=== PATIENT | male | born 1940 | race Caucasian/White ===

== ENCOUNTER 2020-08-01 22:35 | Inpatient (IN) ==
[2020-08-02] MEDS ORDERED: Naloxone 0.4 MG/ML INJ IVP PRN (02:16)
[2020-08-02] MEDS ORDERED: Ondansetron 4 MG/2 ML VIAL IVP PRN (02:16)
[2020-08-02] MEDS ORDERED: 0.9 % Sodium Chloride 1,000 ML IVC SCH ×2 (02:30→20:30)
[2020-08-02] MEDS ORDERED: Dextrose Gel 15 GM/37.5 ML TUBE PO PRN ×2 (02:47)
[2020-08-02] MEDS ORDERED: D5% in Water 1,000 ML IVC PRN (02:47)
[2020-08-02] MEDS ORDERED: *HR* Dextrose 50 % in Water (Vial) 50 ML VIAL IVP PRN (02:47)
[2020-08-02] MEDS: Insulin LISPRO 300 UNITS/3 ML VIAL SQ SCH ×3 (06:17→20:12)
[2020-08-02 10:47] LABS: White Blood Count 9.9 K/mcL (4.3-11.1)
[2020-08-02 10:48] LABS: Basophils % 0.3 %; Eosinophils # 0.4 K/mcL (0.0-0.6); Eosinophils % 3.6 %; Hematocrit 28.8 % (37.5-50.1); Hemoglobin 9.1 g/dL (12.9-16.9); Immature Granulocytes % 0.4 % (0-4); Lymphocytes # 1.4 K/mcL (0.6-4.6); Mean Corpuscular HGB Conc 31.6 g/dL (31.6-35.5); Mean Corpuscular Hemoglobin 29.4 pg (28.0-33.3); Mean Corpuscular Volume 92.9 fL (83.0-100.0); Mean Platelet Volume 11.5 fL (9.4-12.4); Monocytes # 0.9 K/mcL (0.0-1.3); Monocytes % 9.5 %; Neutrophils # 7.2 K/mcL (1.6-8.9); Platelet Count 113 K/mcL (140-400); Red Cell Distribution Width 14.4 % (11.5-14.5); Segmented Neutrophils % 72.2 %
[2020-08-02 11:01] LABS: INR 1.7; Prothrombin Time 19.1 Seconds (9.4-12.1)
[2020-08-02 11:04] LABS: Activated Partial Thrombo Time 61.7 Seconds (26.0-36.0)
[2020-08-02 11:09] LABS: Alanine Aminotransferase 6 Units/L (7-52); Albumin 3.6 g/dL (3.5-5.7); Albumin/Globulin Ratio 1.5 (1.1-2.2); Alkaline Phosphatase 75 Units/L (34-104); Aspartate Amino Transferase 13 Units/L (13-39); BUN/Creatinine Ratio 21 (6-26); Bilirubin,Total 0.9 mg/dL (0.3-1.0); Blood Urea Nitrogen 33 mg/dL (8-23); Calcium 9.1 mg/dL (8.6-10.3); Carbon Dioxide 26 mEq/L (23-29); Chloride 105 mEq/L (98-107); Globulin 2.4 g/dL (2.4-3.5); Glucose 114 mg/dL (70-105); Osmolality,Calculated 294 (280-300); Sodium 138 mEq/L (136-145); Troponin I < 0.03 ng/mL (< 0.04); eGFR For African Americans 51 (> 60); eGFR For Non-African Americans 42 (> 60)
[2020-08-02] MEDS ORDERED: Perflutren Lipid Microsphere 1.3 ML in 0.9 % Sodium Chloride 8.7 ML IVP PRN (14:23)
[2020-08-02] MEDS ORDERED: *HR* LORazepam 0.5 MG TABLET PO PRN (20:28)
[2020-08-02] MEDS ORDERED: Albuterol 2.5 MG/3 ML NEBULIZER IH PRN (20:28)
[2020-08-02 20:55] LABS: Magnesium 1.7 mg/dL (1.6-2.6)
[2020-08-02] MEDS: Melatonin 3 MG TABLET PO SCH (21:27)
[2020-08-02] MEDS: QUEtiapine Fumarate 100 MG TABLET PO SCH (21:27)
[2020-08-03 03:06] LABS: INR 1.6; Prothrombin Time 17.7 Seconds (9.4-12.1)
[2020-08-03 03:08] LABS: Basophils % 0.3 %; Eosinophils # 0.4 K/mcL (0.0-0.6); Eosinophils % 3.7 %; Hemoglobin 8.2 g/dL (12.9-16.9); Immature Granulocytes % 0.6 % (0-4); Lymphocytes # 1.3 K/mcL (0.6-4.6); Lymphocytes % 13.5 %; Mean Corpuscular HGB Conc 31.5 g/dL (31.6-35.5); Mean Corpuscular Hemoglobin 29.4 pg (28.0-33.3); Mean Corpuscular Volume 93.2 fL (83.0-100.0); Mean Platelet Volume 12.2 fL (9.4-12.4); Monocytes % 10.3 %; Neutrophils # 6.7 K/mcL (1.6-8.9); Platelet Count 108 K/mcL (140-400); Red Blood Count 2.79 M/mcL (4.19-5.50); Red Cell Distribution Width 14.5 % (11.5-14.5); Segmented Neutrophils % 71.6 %; White Blood Count 9.4 K/mcL (4.3-11.1)
[2020-08-03 03:22] LABS: BUN/Creatinine Ratio 21 (6-26); Blood Urea Nitrogen 25 mg/dL (8-23); Calcium 8.9 mg/dL (8.6-10.3); Carbon Dioxide 25 mEq/L (23-29); Chloride 106 mEq/L (98-107); Glucose 120 mg/dL (70-105); Osmolality,Calculated 290 (280-300); Potassium 3.9 mEq/L (3.5-5.1); Sodium 137 mEq/L (136-145); eGFR For African Americans > 60 (> 60); eGFR For Non-African Americans 58 (> 60)
[2020-08-03] MEDS: Insulin LISPRO 300 UNITS/3 ML VIAL SQ SCH ×4 (03:42→18:56)
[2020-08-03] MEDS ORDERED: TOTAL JOINT MIXTURE (100ML) INTRAART ONE (07:45)
[2020-08-03] MEDS ORDERED: Povidone-Iodine 45 ML, Sodium Chloride IRRigation 1,000 ML IR ONE (07:45)
[2020-08-03 08:28] LABS: INR 1.5; Prothrombin Time 16.7 Seconds (9.4-12.1)
[2020-08-03] MEDS: Fluticasone Propionate Nasal 50 MCG/SPRAY BOTTLE NS SCH (09:08)
[2020-08-03] MEDS ORDERED: 0.9 % Sodium Chloride 250 ML ONE (10:56)
[2020-08-03] MEDS ORDERED: *HR* FentaNYL (PF) 100 MCG/2 ML VIAL ONE (11:49)
[2020-08-03] MEDS ORDERED: Tranexamic Acid 1,000 MG/10 ML VIAL ONE ×2 (11:52→11:58)
[2020-08-03] MEDS ORDERED: Lidocaine -MPF 4% 5 ML AMPUL ONE (11:54)
[2020-08-03] MEDS ORDERED: Dexamethasone 4 MG/ML VIAL ONE (11:54)
[2020-08-03] MEDS ORDERED: *HR* Succinylcholine 200 MG/10 ML VIAL IVP ONE (11:54)
[2020-08-03] MEDS ORDERED: Ondansetron 4 MG/2 ML VIAL ONE (11:54)
[2020-08-03] MEDS ORDERED: Lidocaine -MPF 2% 2 ML VIAL ONE (11:54)
[2020-08-03] MEDS ORDERED: *HR* PHENYLEPHRINE 1,000 MCG/10 ML SYRINGE IVP ONE (11:56)
[2020-08-03] MEDS ORDERED: Famotidine 20 MG/2 ML VIAL ONE (12:00)
[2020-08-03] MEDS ORDERED: Acetaminophen IV 1,000 MG/100 ML INFUS..BTL ONE (12:00)
[2020-08-03] MEDS ORDERED: Vancomycin 1,000 MG VIAL ONE (12:24)
[2020-08-03] MEDS ORDERED: *HR* Vasopressin 20 UNIT/ML VIAL ONE (12:44)
[2020-08-03] MEDS ORDERED: Ondansetron 4 MG/2 ML VIAL IVP PRN (14:18)
[2020-08-03] MEDS ORDERED: *HR* HYDROmorphone PF 0.5 MG/0.5 ML SYRINGE IVP PRN (14:18)
[2020-08-03] MEDS ORDERED: *HR* HYDROMORPHONE 2 MG/ML VIAL ONE (15:07)
[2020-08-03] MEDS ORDERED: Sennosides 8.6 MG TABLET PO PRN (16:06)
[2020-08-03] MEDS ORDERED: MOM Conc 10 ML UD.LIQ PO PRN (16:06)
[2020-08-03] MEDS ORDERED: Ringers Solution, Lactated 1,000 ML IVC SCH (16:15)
[2020-08-03] MEDS: Ascorbic Acid 500 MG TABLET PO SCH (19:27)
[2020-08-03] MEDS: CeFAZolin 2 GM/120 ML BAG IVPB SCH (20:28)
[2020-08-03] MEDS: Melatonin 3 MG TABLET PO SCH (22:05)
[2020-08-03] MEDS: QUEtiapine Fumarate 100 MG TABLET PO SCH (22:05)
[2020-08-04 00:51] LABS: Hematocrit 27.5 % (37.5-50.1); Hemoglobin 8.8 g/dL (12.9-16.9); Mean Corpuscular Hemoglobin 29.8 pg (28.0-33.3); Mean Corpuscular Volume 93.2 fL (83.0-100.0); Mean Platelet Volume 12.3 fL (9.4-12.4); Platelet Count 105 K/mcL (140-400); Red Blood Count 2.95 M/mcL (4.19-5.50); Red Cell Distribution Width 14.6 % (11.5-14.5); White Blood Count 9.4 K/mcL (4.3-11.1)
[2020-08-04 01:10] LABS: BUN/Creatinine Ratio 17 (6-26); Blood Urea Nitrogen 19 mg/dL (8-23); Calcium 8.9 mg/dL (8.6-10.3); Carbon Dioxide 25 mEq/L (23-29); Chloride 108 mEq/L (98-107); Glucose 147 mg/dL (70-105); Magnesium 1.8 mg/dL (1.6-2.6); Osmolality,Calculated 293 (280-300); Potassium 4.7 mEq/L (3.5-5.1); Sodium 139 mEq/L (136-145); eGFR For African Americans > 60 (> 60); eGFR For Non-African Americans > 60 (> 60)
[2020-08-04] MEDS: Insulin LISPRO 300 UNITS/3 ML VIAL SQ SCH ×5 (01:19→22:13)
[2020-08-04] MEDS: CeFAZolin 2 GM/120 ML BAG IVPB SCH (03:16)
[2020-08-04] MEDS: Ascorbic Acid 500 MG TABLET PO SCH ×2 (08:19→15:16)
[2020-08-04] MEDS: Aspirin Enteric Coated 81 MG Tablet PO SCH (08:19)
[2020-08-04] MEDS: Multivit/Ca/Min/Fe/FA 1 TAB TABLET PO SCH (08:20)
[2020-08-04] MEDS: QUEtiapine Fumarate 25 MG TABLET PO SCH (08:21)
[2020-08-04] MEDS: Fluticasone Propionate Nasal 50 MCG/SPRAY BOTTLE NS SCH (08:22)
[2020-08-04] MEDS: QUEtiapine Fumarate 100 MG TABLET PO SCH (22:20)
[2020-08-04] MEDS: *HR* Dabigatran 75 MG CAPSULE PO SCH (22:20)
[2020-08-04] MEDS: Melatonin 3 MG TABLET PO SCH (22:21)
[2020-08-05 02:57] LABS: Basophils % 0.2 %; Eosinophils # 0.4 K/mcL (0.0-0.6); Eosinophils % 4.6 %; Hematocrit 24.6 % (37.5-50.1); Hemoglobin 7.9 g/dL (12.9-16.9); Immature Granulocytes % 0.8 % (0-4); Lymphocytes # 1.4 K/mcL (0.6-4.6); Lymphocytes % 15.4 %; Mean Corpuscular HGB Conc 32.1 g/dL (31.6-35.5); Mean Corpuscular Hemoglobin 30.2 pg (28.0-33.3); Mean Corpuscular Volume 93.9 fL (83.0-100.0); Mean Platelet Volume 12.2 fL (9.4-12.4); Monocytes % 10.9 %; Neutrophils # 6.2 K/mcL (1.6-8.9); Platelet Count 109 K/mcL (140-400); Red Blood Count 2.62 M/mcL (4.19-5.50); Red Cell Distribution Width 14.6 % (11.5-14.5); Segmented Neutrophils % 68.1 %; White Blood Count 9.2 K/mcL (4.3-11.1)
[2020-08-05 03:06] LABS: BUN/Creatinine Ratio 17 (6-26); Blood Urea Nitrogen 14 mg/dL (8-23); Calcium 8.5 mg/dL (8.6-10.3); Carbon Dioxide 25 mEq/L (23-29); Chloride 107 mEq/L (98-107); Glucose 112 mg/dL (70-105); Osmolality,Calculated 283 (280-300); Potassium 3.6 mEq/L (3.5-5.1); Sodium 136 mEq/L (136-145); eGFR For African Americans > 60 (> 60); eGFR For Non-African Americans > 60 (> 60)
[2020-08-05] MEDS: *HR* Dabigatran 75 MG CAPSULE PO SCH ×2 (09:17→20:11)
[2020-08-05] MEDS: QUEtiapine Fumarate 25 MG TABLET PO SCH (09:18)
[2020-08-05] MEDS: Aspirin Enteric Coated 81 MG Tablet PO SCH (09:18)
[2020-08-05] MEDS: Multivit/Ca/Min/Fe/FA 1 TAB TABLET PO SCH (09:19)
[2020-08-05] MEDS: Ascorbic Acid 500 MG TABLET PO SCH ×2 (09:19→16:18)
[2020-08-05] MEDS: Insulin LISPRO 300 UNITS/3 ML VIAL SQ SCH ×4 (09:25→21:00)
[2020-08-05] MEDS: Fluticasone Propionate Nasal 50 MCG/SPRAY BOTTLE NS SCH (09:26)
[2020-08-05] MEDS: Melatonin 3 MG TABLET PO SCH (20:11)
[2020-08-05] MEDS: QUEtiapine Fumarate 100 MG TABLET PO SCH (20:11)
[2020-08-06 04:43] LABS: Hematocrit 27.2 % (37.5-50.1); Hemoglobin 8.6 g/dL (12.9-16.9); Mean Corpuscular HGB Conc 31.6 g/dL (31.6-35.5); Mean Corpuscular Hemoglobin 29.9 pg (28.0-33.3); Mean Corpuscular Volume 94.4 fL (83.0-100.0); Mean Platelet Volume 11.6 fL (9.4-12.4); Platelet Count 118 K/mcL (140-400); Red Blood Count 2.88 M/mcL (4.19-5.50); Red Cell Distribution Width 14.5 % (11.5-14.5); White Blood Count 7.8 K/mcL (4.3-11.1)
[2020-08-06 04:52] LABS: BUN/Creatinine Ratio 14 (6-26); Blood Urea Nitrogen 10 mg/dL (8-23); Calcium 8.6 mg/dL (8.6-10.3); Carbon Dioxide 26 mEq/L (23-29); Chloride 104 mEq/L (98-107); Glucose 117 mg/dL (70-105); Osmolality,Calculated 286 (280-300); Potassium 3.8 mEq/L (3.5-5.1); Sodium 138 mEq/L (136-145); eGFR For African Americans > 60 (> 60); eGFR For Non-African Americans > 60 (> 60)
[2020-08-06] MEDS: QUEtiapine Fumarate 25 MG TABLET PO SCH (08:20)
[2020-08-06] MEDS: Aspirin Enteric Coated 81 MG Tablet PO SCH (08:21)
[2020-08-06] MEDS: *HR* Dabigatran 75 MG CAPSULE PO SCH (08:21)
[2020-08-06] MEDS: Ascorbic Acid 500 MG TABLET PO SCH ×2 (08:21→16:58)
[2020-08-06] MEDS: Multivit/Ca/Min/Fe/FA 1 TAB TABLET PO SCH (08:21)
[2020-08-06] MEDS: Insulin LISPRO 300 UNITS/3 ML VIAL SQ SCH ×4 (08:22→21:45)
[2020-08-06] MEDS: Fluticasone Propionate Nasal 50 MCG/SPRAY BOTTLE NS SCH (08:27)
[2020-08-06] MEDS ORDERED: Acetaminophen 325 MG TABLET PO PRN (10:12)
[2020-08-06] MEDS: QUEtiapine Fumarate 100 MG TABLET PO SCH (21:45)
[2020-08-06] MEDS: Melatonin 3 MG TABLET PO SCH (21:45)
[2020-08-06] MEDS: *HR* Dabigatran 150 MG CAPSULE PO SCH (21:45)
[2020-08-07 02:19] LABS: Hematocrit 29.3 % (37.5-50.1); Hemoglobin 9.1 g/dL (12.9-16.9); Mean Corpuscular HGB Conc 31.1 g/dL (31.6-35.5); Mean Corpuscular Hemoglobin 30.8 pg (28.0-33.3); Mean Corpuscular Volume 99.3 fL (83.0-100.0); Mean Platelet Volume 12.4 fL (9.4-12.4); Red Blood Count 2.95 M/mcL (4.19-5.50); Red Cell Distribution Width 14.5 % (11.5-14.5); White Blood Count 8.1 K/mcL (4.3-11.1)
[2020-08-07 02:43] LABS: Platelet Count 92 K/mcL (140-400)
[2020-08-07] MEDS: Insulin LISPRO 300 UNITS/3 ML VIAL SQ SCH ×4 (08:19→21:07)
[2020-08-07] MEDS: QUEtiapine Fumarate 25 MG TABLET PO SCH (08:21)
[2020-08-07] MEDS: Ascorbic Acid 500 MG TABLET PO SCH ×2 (08:21→14:58)
[2020-08-07] MEDS: Aspirin Enteric Coated 81 MG Tablet PO SCH (08:21)
[2020-08-07] MEDS: *HR* Dabigatran 150 MG CAPSULE PO SCH ×2 (08:21→21:06)
[2020-08-07] MEDS: Fluticasone Propionate Nasal 50 MCG/SPRAY BOTTLE NS SCH (08:22)
[2020-08-07] MEDS: Multivit/Ca/Min/Fe/FA 1 TAB TABLET PO SCH (08:22)
[2020-08-07] MEDS: QUEtiapine Fumarate 100 MG TABLET PO SCH (21:06)
[2020-08-07] MEDS: Melatonin 3 MG TABLET PO SCH (21:07)
[2020-08-08] MEDS: *HR* Dabigatran 150 MG CAPSULE PO SCH (08:30)
[2020-08-08] MEDS: Ascorbic Acid 500 MG TABLET PO SCH ×2 (08:31→15:52)
[2020-08-08] MEDS: Aspirin Enteric Coated 81 MG Tablet PO SCH (08:31)
[2020-08-08] MEDS: Multivit/Ca/Min/Fe/FA 1 TAB TABLET PO SCH (08:31)
[2020-08-08] MEDS: QUEtiapine Fumarate 25 MG TABLET PO SCH (08:31)
[2020-08-08] MEDS: Fluticasone Propionate Nasal 50 MCG/SPRAY BOTTLE NS SCH (08:32)
[2020-08-08] MEDS: Insulin LISPRO 300 UNITS/3 ML VIAL SQ SCH ×2 (10:17→12:35)
[2020-08-08 20:34] VITALS: BP 150/91
== END 2020-08-08 22:00 | DRG 522 ==
LOC: 3NENU → SUATTDRO 08-02 01:52
PROVIDERS: ADMIT Student in an Organized Health Care Education/Training Program; ATTEND Internal Medicine

== ENCOUNTER 2020-09-15 11:22 | Inpatient (IN) ==
[2020-09-15 13:25] LABS: BUN/Creatinine Ratio 11 (6-26); Blood Urea Nitrogen 9 mg/dL (8-23); Calcium 9.9 mg/dL (8.6-10.3); Carbon Dioxide 31 mEq/L (23-29); Chloride 98 mEq/L (98-107); Glucose 117 mg/dL (70-105); Osmolality,Calculated 284 (280-300); Potassium 3.6 mEq/L (3.5-5.1); Sodium 137 mEq/L (136-145); eGFR For African Americans > 60 (> 60); eGFR For Non-African Americans > 60 (> 60)
[2020-09-15] MEDS ORDERED: Piperacillin/Tazobactam 3.375 GM in Water for inj. (sterile) 20 ML IVP ONE (16:08)
[2020-09-15 16:12] LABS: Basophils % 0.4 %; Eosinophils # 0.1 K/mcL (0.0-0.6); Eosinophils % 1.1 %; Hematocrit 39.2 % (37.5-50.1); Hemoglobin 12.1 g/dL (12.9-16.9); Immature Granulocytes % 0.4 % (0-4); Lymphocytes # 1.8 K/mcL (0.6-4.6); Lymphocytes % 21.1 %; Mean Corpuscular HGB Conc 30.9 g/dL (31.6-35.5); Mean Corpuscular Hemoglobin 27.1 pg (28.0-33.3); Mean Corpuscular Volume 87.9 fL (83.0-100.0); Monocytes # 0.9 K/mcL (0.0-1.3); Monocytes % 10.4 %; Neutrophils # 5.6 K/mcL (1.6-8.9); Platelet Count 177 K/mcL (140-400); Red Blood Count 4.46 M/mcL (4.19-5.50); Red Cell Distribution Width 14.9 % (11.5-14.5); Segmented Neutrophils % 66.6 %; White Blood Count 8.4 K/mcL (4.3-11.1)
[2020-09-15 16:38] LABS: C-Reactive Protein 10 mg/L (Less than 10)
[2020-09-15] MEDS ORDERED: Ketorolac 15 MG/ML VIAL IVP PRN (18:35)
[2020-09-15] MEDS ORDERED: Ondansetron ODT 4 MG TAB.RAPDIS SL PRN (18:35)
[2020-09-15] MEDS ORDERED: Naloxone 0.4 MG/ML INJ IVP PRN (18:35)
[2020-09-15] MEDS: QUEtiapine Fumarate 100 MG TABLET PO SCH (20:56)
[2020-09-15] MEDS: *HR* Heparin 5,000 UNIT/ML VIAL SQ SCH (20:56)
[2020-09-15] MEDS ORDERED: Albuterol 2.5 MG/3 ML NEBULIZER IH PRN (22:00)
[2020-09-16] MEDS: Piperacillin/Tazobactam 3.375 GM in 0.9 % Sodium Chloride Mini Bag 100 ML IVPB SCH ×4 (00:24→23:38)
[2020-09-16] MEDS: Vancomycin 1,500 MG/265 ML IV.SOLN IVPB SCH ×2 (04:25→15:57)
[2020-09-16 05:16] LABS: Basophils % 0.7 %; Eosinophils # 0.3 K/mcL (0.0-0.6); Eosinophils % 4.3 %; Hematocrit 39.1 % (37.5-50.1); Immature Granulocytes % 0.7 % (0-4); Lymphocytes # 1.7 K/mcL (0.6-4.6); Lymphocytes % 28.9 %; Mean Corpuscular HGB Conc 30.7 g/dL (31.6-35.5); Mean Corpuscular Volume 87.9 fL (83.0-100.0); Mean Platelet Volume 10.2 fL (9.4-12.4); Monocytes # 0.8 K/mcL (0.0-1.3); Monocytes % 13.1 %; Platelet Count 134 K/mcL (140-400); Red Blood Count 4.45 M/mcL (4.19-5.50); Red Cell Distribution Width 14.8 % (11.5-14.5); Segmented Neutrophils % 52.3 %; White Blood Count 5.8 K/mcL (4.3-11.1)
[2020-09-16 05:40] LABS: BUN/Creatinine Ratio 9 (6-26); Blood Urea Nitrogen 7 mg/dL (8-23); Calcium 9.7 mg/dL (8.6-10.3); Carbon Dioxide 29 mEq/L (23-29); Chloride 102 mEq/L (98-107); Chol/HDL Ratio 5.4 (0-4.9); Cholesterol 135 mg/dL (< 200); Glucose 103 mg/dL (70-105); HDL Cholesterol 25 mg/dL (40-59); LDL Cholesterol,Calculated 89 mg/dL (< 100); Osmolality,Calculated 286 (280-300); Potassium 3.3 mEq/L (3.5-5.1); Sodium 139 mEq/L (136-145); Triglycerides 107 mg/dL (< 150); eGFR For African Americans > 60 (> 60); eGFR For Non-African Americans > 60 (> 60)
[2020-09-16] MEDS: *HR* Heparin 5,000 UNIT/ML VIAL SQ SCH ×3 (06:11→22:37)
[2020-09-16] MEDS: QUEtiapine Fumarate 25 MG TABLET PO SCH (09:01)
[2020-09-16 09:09] LABS: Estimated Average Glucose 117 mg/dl
[2020-09-16 12:10] LABS: Adenovirus Not Detected (Not Detect); Bordetella Pertussis Not Detected (Not Detect); Chlamydophila pneumoniae Not Detected (Not Detect); Coronavirus 229E Not Detected (Not Detect); Coronavirus HKU1 Not Detected (Not Detect); Coronavirus NL63 Not Detected (Not Detect); Coronavirus OC43 Not Detected (Not Detect); Human Metapneumovirus Not Detected (Not Detect); Human Rhinovirus/Enterovirus Not Detected (Not Detect); Influenza A Subtype 2009 H1 Not Detected (Not Detect); Influenza B Not Detected (Not Detect); Mycoplasma pneumoniae Not Detected (Not Detect); Parainfluenza Virus 1 Not Detected (Not Detect); Parainfluenza Virus 2 Not Detected (Not Detect); Parainfluenza Virus 3 Not Detected (Not Detect); Parainfluenza Virus 4 Not Detected (Not Detect); Respiratory Syncytial Virus Not Detected (Not Detect); SARS-CoV-2 Not Detected (Not Detect)
[2020-09-16] MEDS: QUEtiapine Fumarate 100 MG TABLET PO SCH (20:06)
[2020-09-17] MEDS ORDERED: 0.9 % Sodium Chloride 1,000 ML IVC ONE (02:11)
[2020-09-17 03:17] LABS: Hematocrit 33.6 % (37.5-50.1); Hemoglobin 10.6 g/dL (12.9-16.9); Mean Corpuscular HGB Conc 31.5 g/dL (31.6-35.5); Mean Corpuscular Volume 88.7 fL (83.0-100.0); Mean Platelet Volume 11.9 fL (9.4-12.4); Platelet Count 148 K/mcL (140-400); Red Blood Count 3.79 M/mcL (4.19-5.50); Red Cell Distribution Width 15.1 % (11.5-14.5); White Blood Count 5.9 K/mcL (4.3-11.1)
[2020-09-17 03:36] LABS: BUN/Creatinine Ratio 10 (6-26); Blood Urea Nitrogen 8 mg/dL (8-23); Calcium 9.1 mg/dL (8.6-10.3); Carbon Dioxide 27 mEq/L (23-29); Chloride 105 mEq/L (98-107); Glucose 144 mg/dL (70-105); Osmolality,Calculated 291 (280-300); Potassium 3.2 mEq/L (3.5-5.1); Sodium 140 mEq/L (136-145); eGFR For African Americans > 60 (> 60); eGFR For Non-African Americans > 60 (> 60)
[2020-09-17] MEDS: Vancomycin 1,500 MG/265 ML IV.SOLN IVPB SCH (04:53)
[2020-09-17] MEDS: *HR* Heparin 5,000 UNIT/ML VIAL SQ SCH ×2 (05:58→13:52)
[2020-09-17] MEDS: QUEtiapine Fumarate 25 MG TABLET PO SCH (07:45)
[2020-09-17] MEDS: Piperacillin/Tazobactam 3.375 GM in 0.9 % Sodium Chloride Mini Bag 100 ML IVPB SCH (07:46)
[2020-09-17] MEDS ORDERED: *HR* FentaNYL (PF) 100 MCG/2 ML VIAL ONE (14:54)
[2020-09-17] MEDS ORDERED: *HR* Propofol 200 MG/20 ML VIAL IVP ONE ×2 (14:55→16:01)
[2020-09-17] MEDS ORDERED: Ondansetron 4 MG/2 ML VIAL ONE (14:55)
[2020-09-17] MEDS ORDERED: Lidocaine -MPF 2% 2 ML VIAL ONE (14:55)
[2020-09-17] MEDS ORDERED: Dexamethasone 4 MG/ML VIAL ONE (14:55)
[2020-09-17] MEDS ORDERED: Lidocaine/EPI 1:100k 1% 20 ML VIAL ONE (15:11)
[2020-09-17] MEDS ORDERED: Acetaminophen IV 1,000 MG/100 ML INFUS..BTL ONE (15:30)
[2020-09-17] MEDS ORDERED: Famotidine 20 MG/2 ML VIAL ONE (15:31)
[2020-09-17] MEDS ORDERED: *HR* PHENYLEPHRINE 1,000 MCG/10 ML SYRINGE IVP ONE (16:07)
[2020-09-17] MEDS ORDERED: Albuterol 2.5 MG/3 ML NEBULIZER IH PRN (17:15)
[2020-09-17] MEDS ORDERED: Naloxone 0.4 MG/ML INJ IVP PRN (17:15)
[2020-09-17] MEDS ORDERED: Ketorolac 15 MG/ML VIAL IVP PRN (17:15)
[2020-09-17] MEDS ORDERED: Ondansetron ODT 4 MG TAB.RAPDIS SL PRN (17:15)
[2020-09-17] MEDS ORDERED: Bacitracin 50,000 UNIT, Sodium Chloride IRRigation 1,000 ML IR ONE ×2 (17:30)
[2020-09-17] MEDS ORDERED: amLODIPine 5 MG TABLET PO SCH (21:00)
[2020-09-18] MEDS: Piperacillin/Tazobactam 3.375 GM in 0.9 % Sodium Chloride Mini Bag 100 ML IVPB SCH ×3 (00:27→19:50)
[2020-09-18] MEDS: *HR* Heparin 5,000 UNIT/ML VIAL SQ SCH ×4 (00:28→21:50)
[2020-09-18] MEDS: QUEtiapine Fumarate 100 MG TABLET PO SCH ×2 (00:29→21:50)
[2020-09-18] MEDS: Vancomycin 1,500 MG/265 ML IV.SOLN IVPB SCH ×2 (04:03→16:41)
[2020-09-18] MEDS ORDERED: Fluticasone Propionate Nasal 50 MCG/SPRAY BOTTLE NS SCH (09:00)
[2020-09-18 10:18] LABS: Basophils % 0.5 %; Eosinophils # 0.2 K/mcL (0.0-0.6); Eosinophils % 3.6 %; Hematocrit 34.5 % (37.5-50.1); Hemoglobin 10.7 g/dL (12.9-16.9); Immature Granulocytes % 0.5 % (0-4); Lymphocytes # 1.1 K/mcL (0.6-4.6); Lymphocytes % 27.1 %; Mean Corpuscular Hemoglobin 27.4 pg (28.0-33.3); Mean Corpuscular Volume 88.5 fL (83.0-100.0); Mean Platelet Volume 11.2 fL (9.4-12.4); Monocytes # 0.5 K/mcL (0.0-1.3); Monocytes % 11.2 %; Neutrophils # 2.4 K/mcL (1.6-8.9); Platelet Count 127 K/mcL (140-400); Red Cell Distribution Width 15.3 % (11.5-14.5); Segmented Neutrophils % 57.1 %; White Blood Count 4.2 K/mcL (4.3-11.1)
[2020-09-18 10:40] LABS: BUN/Creatinine Ratio 6 (6-26); Blood Urea Nitrogen 5 mg/dL (8-23); Calcium 8.7 mg/dL (8.6-10.3); Carbon Dioxide 26 mEq/L (23-29); Chloride 105 mEq/L (98-107); Glucose 145 mg/dL (70-105); Osmolality,Calculated 290 (280-300); Potassium 3.4 mEq/L (3.5-5.1); Sodium 140 mEq/L (136-145); eGFR For African Americans > 60 (> 60); eGFR For Non-African Americans > 60 (> 60)
[2020-09-18] MEDS: QUEtiapine Fumarate 25 MG TABLET PO SCH (10:54)
[2020-09-18 17:20] LABS: SARS-CoV-2 by NAA Not Detected (Not Detect)
[2020-09-19] MEDS ORDERED: *HR* Metoprolol 5 MG/5 ML VIAL IVP ONE (01:11)
[2020-09-19] MEDS: Piperacillin/Tazobactam 3.375 GM in 0.9 % Sodium Chloride Mini Bag 100 ML IVPB SCH ×2 (01:39→08:23)
[2020-09-19 02:21] LABS: Hematocrit 36.4 % (37.5-50.1); Hemoglobin 11.2 g/dL (12.9-16.9); Mean Corpuscular HGB Conc 30.8 g/dL (31.6-35.5); Mean Corpuscular Hemoglobin 27.3 pg (28.0-33.3); Mean Corpuscular Volume 88.6 fL (83.0-100.0); Mean Platelet Volume 12.4 fL (9.4-12.4); Platelet Count 136 K/mcL (140-400); Red Blood Count 4.11 M/mcL (4.19-5.50); Red Cell Distribution Width 15.1 % (11.5-14.5)
[2020-09-19 02:33] LABS: White Blood Count 6.4 K/mcL (4.3-11.1)
[2020-09-19 02:49] LABS: BUN/Creatinine Ratio 7 (6-26); Blood Urea Nitrogen 6 mg/dL (8-23); Carbon Dioxide 23 mEq/L (23-29); Chloride 102 mEq/L (98-107); Glucose 119 mg/dL (70-105); Osmolality,Calculated 281 (280-300); Potassium 3.3 mEq/L (3.5-5.1); Sodium 136 mEq/L (136-145); eGFR For African Americans > 60 (> 60); eGFR For Non-African Americans > 60 (> 60)
[2020-09-19 04:36] LABS: Magnesium 1.6 mg/dL (1.6-2.6)
[2020-09-19] MEDS: Vancomycin 1,500 MG/265 ML IV.SOLN IVPB SCH (04:39)
[2020-09-19] MEDS: *HR* Heparin 5,000 UNIT/ML VIAL SQ SCH (05:32)
[2020-09-19] MEDS: QUEtiapine Fumarate 25 MG TABLET PO SCH (08:24)
[2020-09-19 11:00] VITALS: BP 148/80
[2020-09-19 13:33] LABS: Adenovirus Not Detected (Not Detect); Bordetella Pertussis Not Detected (Not Detect); Chlamydophila pneumoniae Not Detected (Not Detect); Coronavirus 229E Not Detected (Not Detect); Coronavirus HKU1 Not Detected (Not Detect); Coronavirus NL63 Not Detected (Not Detect); Coronavirus OC43 Not Detected (Not Detect); Human Metapneumovirus Not Detected (Not Detect); Human Rhinovirus/Enterovirus Not Detected (Not Detect); Influenza A Subtype 2009 H1 Not Detected (Not Detect); Influenza B Not Detected (Not Detect); Mycoplasma pneumoniae Not Detected (Not Detect); Parainfluenza Virus 1 Not Detected (Not Detect); Parainfluenza Virus 2 Not Detected (Not Detect); Parainfluenza Virus 3 Not Detected (Not Detect); Parainfluenza Virus 4 Not Detected (Not Detect); Respiratory Syncytial Virus Not Detected (Not Detect); SARS-CoV-2 Not Detected (Not Detect)
== END 2020-09-19 15:30 | DRG 617 ==
LOC: EMEROOARM 11:22 → 3NENU 11:22 → SUATTDRO 18:33 → 3NENU 18:38
PROVIDERS: ADMIT Family Medicine; ATTEND Internal Medicine